=== PATIENT | male | born 1950 | race Caucasian/White ===

== ENCOUNTER 2018-05-17 16:34 | Emergency (ER) | payer MEDICARE, OTHER ==
[~2018-05-17] VITALS: Ht 182.9 cm; Wt 103.2 kg
[2018-05-17 16:54] VITALS: BP 153/97
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
[2018-05-17] MEDS ORDERED: TRAM-48 PO (17:30)
[2018-05-17] MEDS: DIPHTH,PERTUSS(ACELL),TET TOX 0.5 ML DISP.SYRIN. VAX IM ONE (17:33)
== END 2018-05-17 17:50 | disposition home or self-care (01) ==
LOC: ER 16:34
DX: S52.181A Other fracture of upper end of right radius, initial encounter for closed fracture (principal); V29.9XXA Motorcycle rider (driver) (passenger) injured in unspecified traffic accident, initial encounter; Y93.89 Activity, other specified; Y99.8 Other external cause status; Y92.89 Other specified places as the place of occurrence of the external cause
CPT/HCPCS: 29105; 73080; 73110; 90471; 90715; 99284-25

== ENCOUNTER → 2018-05-20 | Outpatient (CLI) | payer MEDICARE, OTHER ==
[2018-05-17 16:54] VITALS: BP 153/97
[~2018-05-20] MED LIST: TRAM-48 PO
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
== END | disposition home or self-care (01) ==
LOC: CT 09:22
PROVIDERS: ATTEND Family Medicine
DX: S52.134D Nondisplaced fracture of neck of right radius, subsequent encounter for closed fracture with routine healing (principal); M25.421 Effusion, right elbow; X58.XXXD Exposure to other specified factors, subsequent encounter
CPT/HCPCS: 73200

== ENCOUNTER → 2018-06-09 | Outpatient (CLI) | payer MEDICARE, OTHER ==
[2018-05-17 16:54] VITALS: BP 153/97
--- NOTE | 2018-06-09 10:46 | RAD ---
INDICATION: Follow-up right elbow fracture. TECHNIQUE: 3 views of the right elbow are submitted for review. Comparison radiographs and CT are from May 17, 2018. FINDINGS: A portion of the radial neck fracture is now apparent, the fracture appears to extend intra-articular with slight cortical step-off and displacement of an inferior fragment. Small joint effusion persists. No new fracture is apparent. Olecranon spur is noted. There is no soft tissue swelling. IMPRESSION: Fracture involving the radial head and radial neck, likely with intra-articular extension. Electronically signed by: Wally Phipps MD (06/09/2018 10:43 AM) [facility]
== END | disposition home or self-care (01) ==
LOC: RAD 10:08
PROVIDERS: ATTEND Family Medicine
DX: S52.131D Displaced fracture of neck of right radius, subsequent encounter for closed fracture with routine healing (principal); X58.XXXD Exposure to other specified factors, subsequent encounter
CPT/HCPCS: 73080